=== PATIENT | male | born 1990 | race Caucasian/White ===

== ENCOUNTER → 2020-07-21 18:35 | Outpatient (BNVA) | payer OTHER, SELFPAY | PROVIDERS: PCP Pediatrics; Visit Provider Nurse Practitioner Family | DX: Z11.59 Encounter for screening for other viral diseases (principal) | CPT/HCPCS: 87635 ==

== ENCOUNTER → 2025-02-12 10:01 | Outpatient (BNVA) | payer OTHER, SELFPAY | PROVIDERS: PCP Pediatrics; Visit Provider Student in an Organized Health Care Education/Training Program | DX: M25.531 Pain in right wrist (principal); M67.431 Ganglion, right wrist | CPT/HCPCS: 73110 ==

== ENCOUNTER → 2025-03-14 07:04 | Day surgery (SDC) | payer OTHER, SELFPAY ==
[2025-03-14 07:18] VITALS: BP 117/82; PULSE 81; RESP 16; TEMP 36.5; O2SAT 99; BMI 30.2
[2025-03-14] MEDS: acetaminophen 1,000 MG/100 ML PIGGYBACK 400 MG IV (07:40)
[2025-03-14] MEDS: sodium chloride 0.9% 1,000 ML 30 ML IV (07:40)
[2025-03-14] MEDS: scopolamine 1 mg PATCH 1 PATCH TRANSDERMA (07:41)
[2025-03-14] MEDS: ketorolac 30 mg/mL INJ IVP (07:41)
--- NOTE | 2025-03-14 08:08 | W.PM.OPSUD ---
Surgery/Procedure H&P Update DATE OF PROCEDURE: March 14, 2025 DATE H&P PERFORMED: 02/12/25 H&P UPDATE INFORMATION: I have reviewed H&P completed within last 30 days, I have examined patient prior to procedure and No changes to prior documentation PREOP DIAGNOSIS: Right dorsal wrist ganglion cyst PRIMARY INDICATION FOR PROCEDURE: Right dorsal wrist ganglion cyst PLANNED PROCEDURE: Operation Date: 03/14/25 08:40 Proposed Procedures p Excision Of Ganglion Cyst(Right) - John Moore DO
--- NOTE | 2025-03-14 08:23 | ANES.PREANE2 ---
Pre-Anesthetic Assessment Height/Weight: Height 6 ft 2 in Weight 236 lb Temp Pulse Resp BP Pulse Ox O2 Del Method 97.7 F 81 16 117/82 99 Room Air 03/14/25 07:18 03/14/25 07:18 03/14/25 07:18 03/14/25 07:18 03/14/25 07:18 03/14/25 07:18 Preop Diagnosis: Right dorsal wrist ganglion cyst Operation Date: 03/14/25 08:40 Proposed Procedures p Excision Of Ganglion Cyst(Right) - John Sussex, DO Was Beta Farooq taken within 24 hours: N/A Was Clonidine taken within 24 hours: N/A Last intake: Intake Last Liquid Date 03/13/25 Last Liquid Time 20:00 Last Solid Date 03/13/25 Last Solid Time 20:00 Social No alcohol and No tobacco Exam alert, oriented x 3, clear to auscultation bilaterally and regular rate & rhythm Airway Submandibular: within normal limits Cervical ROM: within normal limits Mallampati: Class II Dentition: full Anesthetic Plan ASA status: 1 Anesthesia: MAC Other: No prior issues with anesthesia NPO since yesterday evening Denies any cardiac or pulmonary issues METs greater than 4 Plan for MAC anesthesia with local via surgeon Medications/Allergies Home Medications ?Medication ?Instructions ?Recorded ?Confirmed ?Last Taken ?Type acetaminophen 500 mg tablet 500 mg PO Q6H PRN Pain, Mild 01/31/24 03/14/25 03/13/25 History (Tylenol Extra Strength) naproxen 250 mg tablet 250 mg PO BID PRN Pain 02/12/25 03/14/25 03/12/25 History tizanidine 4 mg tablet 4 mg PO Q8H PRN Spasms 02/12/25 03/14/25 03/10/25 History Allergies Allergy/AdvReac Type Severity Reaction Status Date / Time No Known Allergies Allergy Verified 03/13/25 09:10 Current Medications Generic Name Dose Route Start Last Admin Trade Name Freq PRN Reason Stop Dose Admin Sodium Chloride 1,000 mls @ 30 mls/hr 03/14/25 07:45 03/14/25 07:40 Sodium Chloride 0.9% IV 03/15/25 07:44 30 mls/hr .Q24H CHITO Administration PFSH Anesthesia Social History Smoking and tobacco/nicotine status: never used tobacco/nicotine Alcohol intake: never Substance/Drug Use: never
--- NOTE | 2025-03-14 08:49 | PC.NURSE ---
pt being delayed until around 1015 due to pt chewing gum.
--- NOTE | 2025-03-14 12:15 | PM.MISC ---
Miscellaneous Note Purpose of Documentation: Patient unfortunately after was seen and evaluated and he subsequently chewed some gum and unfortunately his case was pushed back to the end of the day to allow for 2 hours per anesthesia's recommendations unfortunately this ended up getting too close to conflicting with his appointment he has with [facility] [employer] and as a result he wished to reschedule he subsequently had IV removed and changed and subsequently will reach out to him in the next few weeks to try and get a new schedule date picked up as he states this was an appointment he could miss. I was apologetic that patient had to wait he completely understood and understands our office will reach out and get him rescheduled. Patient understands agrees current plan. All questions answered. Patient discharged without having surgery.
--- NOTE | 2025-03-14 12:21 | PC.NURSE ---
pt states he needs to leave. states he has to work [employer] and has appt. at 2. dr. bronson into talk with pt.
== END | disposition home or self-care (01) ==
PROVIDERS: PCP Nurse Practitioner Family; Visit Provider Student in an Organized Health Care Education/Training Program
DX: Z53.8 Procedure and treatment not carried out for other reasons (principal)
CPT/HCPCS: J0131; J1885; J2250; J2704; J3010; J7030; J9999

== ENCOUNTER 2025-04-07 07:50 | Day surgery (SDC) | payer OTHER, SELFPAY ==
[2025-04-07] VITALS (7 sets, daily range): BP systolic 121–140; BP diastolic 76–98; PULSE 56–70; RESP 16–20; TEMP 36.1–36.5; O2SAT 94–98; BMI 29.9
[2025-04-07] MEDS: sodium chloride 0.9% 1,000 ML 30 ML IV (08:11)
--- NOTE | 2025-04-07 08:12 | ANES.PREANE2 ---
Pre-Anesthetic Assessment Height/Weight: Height 1.91 m Weight 108.862 kg Temp Pulse Resp BP Pulse Ox O2 Del Method 97 F L 56 L 18 122/79 98 Room Air 04/07/25 08:01 04/07/25 08:01 04/07/25 08:01 04/07/25 08:01 04/07/25 08:01 04/07/25 08:01 Operation Date: 04/07/25 09:20 Proposed Procedures p Excision of dorsal wrist ganglion cyst excisoin(Right) - John Teresa, DO Familial anesthetic complications: None Was Beta Farooq taken within 24 hours: N/A Was Clonidine taken within 24 hours: N/A Last intake: > 8 hrs Social No alcohol and No tobacco Exam alert, oriented x 3, clear to auscultation bilaterally and regular rate & rhythm Airway Mallampati: Class II Dentition: other (missing teeth) Anesthetic Plan ASA status: 1 Anesthesia: MAC Risk of > 500 ml blood loss (7ml/kg in children): No Medications/Allergies Home Medications ?Medication ?Instructions ?Recorded ?Confirmed ?Last Taken ?Type acetaminophen 500 mg tablet 500 mg PO Q6H PRN Pain, Mild 01/31/24 04/03/25 03/13/25 History (Tylenol Extra Strength) naproxen 250 mg tablet 250 mg PO BID PRN Pain 02/12/25 04/03/25 03/12/25 History tizanidine 4 mg tablet 4 mg PO Q8H PRN Spasms 02/12/25 04/03/25 03/10/25 History Allergies Allergy/AdvReac Type Severity Reaction Status Date / Time No Known Allergies Allergy Verified 04/07/25 07:56 Current Medications Generic Name Dose Route Start Last Admin Trade Name Freq PRN Reason Stop Dose Admin Sodium Chloride 1,000 mls @ 30 mls/hr 04/07/25 08:00 04/07/25 08:11 Sodium Chloride 0.9% IV 04/08/25 07:59 30 mls/hr .Q24H CHITO Administration PFSH Anesthesia Social History Smoking and tobacco/nicotine status: never used tobacco/nicotine Alcohol intake: never Substance/Drug Use: never
[2025-04-07] MEDS: acetaminophen 1,000 MG/100 ML PIGGYBACK 400 MG IV (08:20)
[2025-04-07] MEDS: ketorolac 30 mg/mL INJ IVP (08:20)
[2025-04-07] MEDS: scopolamine 1 mg PATCH 1 PATCH TRANSDERMA (08:20)
--- NOTE | 2025-04-07 09:24 | W.PM.OPSFHP ---
Same Day Surgery H&P Indication for Procedure/HPI DATE OF PROCEDURE: April 07, 2025 CHIEF COMPLAINT/INDICATIONFOR SURGICAL PROCEDURE: Right dorsal wrist ganglion cyst PREOP DIAGNOSIS: Right dorsal wrist ganglion cyst PLANNED PROCEDURE: Operation Date: 04/07/25 09:20 Proposed Procedures p Excision of dorsal wrist ganglion cyst excisoin(Right) - John Balndonatt, DO Medications/Allergies* Home Medications ?Medication ?Instructions ?Recorded ?Confirmed ?Type acetaminophen 500 mg tablet 500 mg PO Q6H PRN Pain, Mild 01/31/24 04/03/25 History (Tylenol Extra Strength) naproxen 250 mg tablet 250 mg PO BID PRN Pain 02/12/25 04/03/25 History tizanidine 4 mg tablet 4 mg PO Q8H PRN Spasms 02/12/25 04/03/25 History Allergies/Adverse Reactions Allergy/AdvReac Type Severity Reaction Status Date / Time No Known Allergies Allergy Verified 04/07/25 07:56 Current Medications: Generic Name Dose Route Start Last Admin Trade Name Freq PRN Reason Stop Dose Admin Sodium Chloride 1,000 mls @ 30 mls/hr 04/07/25 08:00 04/07/25 08:11 Sodium Chloride 0.9% IV 04/08/25 07:59 30 mls/hr .Q24H CHITO Administration Pertinent History/Comorbid Conditions* Social History Smoking and tobacco/nicotine status: never used tobacco/nicotine Alcohol intake: never Substance/Drug Use: never Pertinent Exam Findings alert, oriented x 3, operative site marked and procedure specific exam findings Please refer to detailed orthopedic examination 02/12/25 listed below: Examination patient has a soft mobile dorsal ganglion wrist cyst. This has significant tenderness to palpation as well as pain with end range of motion of wrist flexion and wrist extension limiting his motion compared to the contralateral side. Gross motor and sensory intact of the right hand. Patient is an negative Matias scaphoid shift test negative tenderness palpation over the first dorsal compartment negative Marco Antonio's. Tenderness palpation over the A1 pulleys of the full fist. Sensation intact light touch distally. Recommendations Risks and benefits of procedure reviewed and Patient/family agree to proceed Surgery/Procedure today Other Plans: Plan to proceed to the OR today for a right dorsal wrist ganglion cyst excision. Patient at this point in time understands the ins and outs procedure the risk benefits complication alternatives surgery and through shared decision-making elects to proceed with surgical intervention. All questions have been answered at this time we will proceed to the OR today. Coding Level of Care Code Acute Code for Chg Fwd
[2025-04-07] MEDS: ceFAZolin 2,000 MG in sodium chloride 0.9% (plus) 50 ML 100 MG IV (09:29)
[2025-04-07] MEDS: ROPivacaine 0.5% SDV 30 mL 150 MG (09:43)
[2025-04-07] MEDS: sodium bicarbonate 4.2% 0.5 mEq/mL SDV 5mL 2.5 MEQ (09:43)
[2025-04-07] MEDS: lidocaine-epi 1% 20 mL INJ (09:43)
--- NOTE | 2025-04-07 10:18 | P.BOP_ITS ---
Date of Procedure: 04/07/2025 Surgeon: John Moore DO Vending Machine Coin Collector(s): None Procedure(s) performed: Right dorsal wrist ganglion cyst excision (1 cm x 1 cm x 1 cm) Findings of the procedure(s): Patient underwent procedure as planned without issues or complications taken recovery stable condition. Estimated blood loss: 5 mL Specimen(s) removed: Right dorsal wrist ganglion cyst excised and sent for specimen Post-operative diagnosis: Right dorsal wrist ganglion cyst
--- NOTE | 2025-04-07 10:19 | PM.OP ---
Operative Report Date of procedure: April 07, 2025 Surgeon: John Moore DO Procedure: Preoperative diagnosis: Right dorsal wrist ganglion cyst Postoperative diagnosis: Same Procedure Right?dorsal?wrist?ganglion cyst excision (1 cm x 1 cm x 1 cm) Specimens removed/disposition: Right?dorsal?wrist?ganglion cyst excised and sent for pathology Surgeon: John Moore DO Estimated blood loss: 5mL Tourniquet time 16 minutes IV fluids: See anesthesia record Complications: None Findings: See operative report narrative Condition: stable Disposition: same day Brief History: Patient's been worked up in the outpatient setting and findings consistent with preoperative diagnosis.? Patient has a right?dorsal?wrist?ganglion cyst.? Patient has attempted conservative treatment and this has become significantly painful.? We talked about treatment options as far as nonoperative and operative intervention.? At this point time patient like a more permanent solution in the lowest chance of recurrence and as result through shared decision making we agreed to proceed with a right?dorsal?wrist?ganglion cyst excision.? Patient understands risk benefits complication alternatives surgical nonsurgical treatment options.? Understanding risk of surgery patient agrees to proceed.? All questions answered.? Consent obtained in the preoperative holding area.. Procedure: Patient seen evaluate in the preoperative holding area.? Consent was signed and reviewed with patient.? All questions were answered at that time.? Correct extremity was then marked.? Once seen evaluated by anesthesia patient was then brought back to the operative suite.? Patient was then placed in supine position all bony prominences well-padded patient was properly secured to the bed.? An armboard was then applied for the right upper extremity.? A nonsterile tourniquet was applied to the right upper extremity arm.? Patient then underwent anesthesia per the anesthesia department.? Once appropriately anesthetized the right upper extremity was then prepped and draped in standard orthopedic fashion.? Final timeout performed.? Patient received appropriate preoperative antibiotics. Under sterile aseptic technique I began with local anesthetic for my preplanned surgical site.? Then I utilized an Esmarch tourniquet to exsanguinate the right upper extremity to 250 mmHg Patient had a soft mobile?ganglion cyst which a incision was then centered longitudinally directly over the cyst over the?dorsal?aspect of the right wrist.? sharp scalpel incision was made through skin and subcutaneous tissue.? I then switched to dissection scissors and spread longitudinally to identify branches of the superficial radial nerve.? These were protected throughout the case.? I immediately encountered the?ganglion cyst which was just distal to the extensor retinaculum and between the third and fourth?dorsal?compartments.? I then protected the tendons and identified the?ganglion cyst subsequently dissected circumferentially all the way to the base which was connected to the?dorsal?capsule.? This was then transected at the base with bipolar electrocautery.? I did have to excise some of the?dorsal?capsule that communicated with the cyst this had a broad connection and cyst stalk to the?dorsal?capsule. I utilized bipolar electrocautery to to seal off the?dorsal?capsule and prevent any further cyst recurrence.? Cyst measured roughly 1 cm x 1 cm x 1 cm. It was removed its entirety. Cyst was then sent for pathology.? I then thoroughly irrigated the wound bed tourniquet was deflated.? Hemostasis was satisfactory with bipolar electrocautery.? I then closed the incision in layered fashion with 3-0 Vicryl suture subcutaneously and running horizontal mattress nylon stitch for skin.? Xeroform over the incisions 4 x 4's ABD soft roll and a volar splint was applied.? Patient was then awakened from anesthesia and taken back in stable condition. Disposition: Patient taken back in stable condition recovering well.? Patient will receive appropriate discharge instructions as well as pain medication postoperatively.? Patient placed in a volar splint.? We will follow-up with in the orthopedic office in 2 weeks.? Patient understands of any questions or concerns and contact the office.
--- NOTE | 2025-04-07 10:33 | PM.PACU ---
PACU note Narrative: Patient is a 34-year-old male that is here for a right hand cyst removal. Patient transferred to PACU in stable condition. Pain is well controlled. Dressing and splint on hand is dry and in place. Patient's fingers are warm and well-perfused. Patient can wiggle fingers. normal cap refill under 2 seconds. Patient has normal elbow range of motion. Sensation of fingers intact.. Exam: awake Disposition: discharged
--- NOTE | 2025-04-07 11:20 | ANE.PACU2 ---
Inpatient post-anesthesia follow up: Airway intact: Yes Vital signs: Temperature 97.2 F Pulse Rate 57 Respiratory Rate 18 Blood Pressure 131/98 Pulse Oximetry 98 Oxygen Delivery Me thod Room Air Oxygen Flow Rate Fraction of Inspir ed Oxygen Hydration adequate: Yes Nausea and vomiting: No Pain level: 1 Mental status: Baseline
== END 2025-04-07 11:22 | disposition home or self-care (01) ==
PROVIDERS: PCP Nurse Practitioner Family; Visit Provider Student in an Organized Health Care Education/Training Program
PROC: (CPT 25111; principal; 2025-04-07 09:20)
DX: M67.431 Ganglion, right wrist (principal)
CPT/HCPCS: 25111; 88304; J0131; J0690; J1885; J2250; J2704; J2795; J3010; J7030; J9999